=== PATIENT | female | born 1935 | race Caucasian/White ===

== ENCOUNTER 2019-08-03 09:21 | Inpatient (IN) | payer MEDICARE ==
--- NOTE | 2019-08-03 09:40 | ER Document Report ---
ED Medical Screen (RME) - General Chief Complaint: Fall Stated Complaint: LEFT HIP PAIN Time Seen by Provider: 08/03/19 09:35 Mode of Arrival: Medic Information source: Patient Notes: 83-year-old female presented to ED for fall last night. She states she was coming down the stairs stepped off of the left last step onto a slick wood floor and her foot went out from under her causing her to fall she does have pain in her left hip above the femoral head area. It is painful to move the leg. She states that she did not come in last night because she went to see how it was going to do and then this morning it continued to hurt so she came to the emergency room she does have a history of high blood pressure and arthritis. She states she does not smoke or use any illicit drugs but she has a glass of Chardonnay a couple times a week. She states there is no pain if she stays still but if she moves it it hurts and her daughter insisted she come to the hospital. Patient refuses pain medicine at this time. I have greeted and performed a rapid initial assessment of this patient. A comprehensive ED assessment and evaluation of the patient, analysis of test results and completion of medical decision making process will be conducted by an additional ED providers. Physical Exam - Vital signs Vitals: Temp Pulse Resp BP Pulse Ox 98.0 F 77 18 172/87 H 94 08/03/19 09:28 08/03/19 09:28 08/03/19 09:28 08/03/19 09:28 08/03/19 09:28 Course - Vital Signs Vital signs: Temp Pulse Resp BP Pulse Ox 98.0 F 77 18 172/87 H 94 08/03/19 09:28 08/03/19 09:28 08/03/19 09:28 08/03/19 09:28 08/03/19 09:28
--- NOTE | 2019-08-03 10:18 | RADIOLOGY REPORT (SQ) ---
EXAM DESCRIPTION: HIP LEFT AP/LATERAL COMPLETED DATE/TIME: 08/03/2019 10:07 am REASON FOR STUDY: bed 18 left hip s/p fall with tenderness COMPARISON: None. NUMBER OF VIEWS: Two views. TECHNIQUE: AP pelvis and additional frog-leg view of the left hip. LIMITATIONS: None. FINDINGS: MINERALIZATION: Normal. LEFT HIP: No fracture or dislocation. No worrisome bone lesions. RIGHT HIP: No fracture or dislocation. No worrisome bone lesions. PUBIS AND ISCHIUM: Comminuted fractures of the superior and inferior pubic rami on the left. PELVIS: No fracture. SACRUM: No fracture or dislocation. No worrisome bone lesions. LOWER LUMBAR SPINE: No fracture or dislocation. No worrisome bone lesions. No significant disc disea se. SOFT TISSUES: Calcification and diffuse ectasia of the aorta. Worrisome for aneurysmal dilatation di stally. OTHER: No other significant finding. IMPRESSION: Comminuted fractures of the superior inferior pubic rami on the left. Possible distal abdominal aortic aneurysm. COMMENT: Recommend aortic ultrasound. TECHNICAL DOCUMENTATION: JOB ID: [id number] [employer]- All Rights Reserved Reading location - IP/workstation name: [email or web address]
--- NOTE | 2019-08-03 11:14 | ER Document Report ---
ED General - General Chief Complaint: Fall Stated Complaint: LEFT HIP PAIN Time Seen by Provider: 08/03/19 09:35 Mode of Arrival: Medic - HPI Notes: Patient is an 83-year-old female with history of hypertension who presents complaining of left medial pelvic pain status post fall yesterday. Patient states that she was on the last step at her son's house and her sock slipped on the wood floor and she fell on her left hip area. Patient states that she has had pain since then primarily with movement. Patient states that she cannot weight-bear at this time because of the pain. She is otherwise able to eat and drink without difficulty. She is urinating normally and having normal bowel movements. She otherwise lives alone, but is visiting her son. Denies drug allergies. She is not on any blood thinning medications. Denies any headache, fever, head injury, neck pain, changes in vision/speech/mentation/hearing, URI, sore throat, chest pain, palpitations, syncope, cough, shortness of breath, wheeze, dyspnea, abdominal pain, nausea/vomiting/diarrhea, urinary retention, dysuria, hematuria, loss of control of bowel or bladder, numbness/tingling, saddle anesthesia, muscle paralysis, or rash. - Related Data Allergies/Adverse Reactions: No Known Allergies Allergy (Verified 08/03/19 09:42) Home Medications: Anatol and lisinopril Past Medical History - General Information source: Patient - Social History Smoking Status: Never Smoker Frequency of alcohol use: Occasional Family History: Reviewed & Not Pertinent Patient has suicidal ideation: No Patient has homicidal ideation: No Review of Systems - Review of Systems -: Yes All other systems reviewed and negative Physical Exam - Vital signs Vitals: Temp Pulse Resp BP Pulse Ox 98.0 F 77 18 172/87 H 94 08/03/19 09:28 08/03/19 09:28 08/03/19 09:28 08/03/19 09:28 08/03/19 09:28 - Notes Notes: PHYSICAL EXAMINATION: GENERAL: Well-appearing, well-nourished and in no acute distress. A&Ox4. answers questions appropriately. HEAD: Atraumatic, normocephalic. EYES: Pupils equal round and reactive to light, extraocular movements intact, sclera anicteric, conjunctiva are normal. ENT: EAC clear b/l. TM's intact b/l without erythema, fluid, or perforation. Nares patent and without discharge. oropharynx clear without exudates. No tonsilar hypertrophy or erythema. Moist mucous membranes. No sinus tenderness. NECK: Normal range of motion, supple without lymphadenopathy. No midline tenderness. LUNGS: Breath sounds clear to auscultation bilaterally and equal. No wheezes rales or rhonchi. HEART: Regular rate and rhythm without murmurs, rubs, gallops. ABDOMEN: Soft, nontender, nondistended abdomen. No guarding, no rebound. Normal bowel sounds present. No CVA tenderness bilaterally. Musculoskeletal: Left hip: FROM at the hip. + tenderness to the medial lower pelvic area. N/V intact distal. No lateral hip tenderness. Extremities: No cyanosis, clubbing, or edema b/l. Peripheral pulses 2+. Capillary refill less than 3 seconds. NEUROLOGICAL: Cranial nerves grossly intact. Normal speech, normal gait. Normal sensory, motor exams PSYCH: Normal mood, normal affect. SKIN: Warm, Dry, normal turgor, no rashes or lesions noted. Course - Re-evaluation Re-evalutation: 08/03/19 13:25 Patient is an 83-year-old female who presents with comminuted fractures of the superior inferior pubic rami on the left status post fall. Vitals are acceptable without significant tachycardia, tachypnea, hypoxia. PE is otherwise unremarkable for any neurovascular compromise, obvious tendon/leg rupture, open fracture, septic joint. Patient is an 83-year-old female who lives alone and cannot weight-bear. I did speak with our hospitalist, Dr. Hubbard, who has graciously accepted admission for this patient. Patient in agreement with plan. - Vital Signs Vital signs: Temp Pulse Resp BP Pulse Ox 98.0 F 77 18 172/87 H 94 08/03/19 09:28 08/03/19 09:28 08/03/19 09:28 08/03/19 09:28 08/03/19 09:28 - Laboratory Result Diagrams: 08/03/19 11:44 08/03/19 11:44 Laboratory results interpreted by me: 08/03/19 08/03/19 11:44 11:44 Hgb 15.6 H RDW 14.4 H Lymph % (Auto) 7.8 L Seg Neutrophils % 86.2 H Glucose 118 H Discharge - Discharge Clinical Impression: Fracture of pubic ramus Qualifiers: Encounter type: initial encounter Fracture type: closed Laterality: left Qualified Code(s): S32.592A - Other specified fracture of left pubis, initial encounter for closed fracture Condition: Stable Disposition: ADMITTED OBSERVATION Admitting Provider: Haydee (Hospitalist) Unit Admitted: Medical Floor
[2019-08-03] MEDS ORDERED: ACETAMINOPHEN 325 MG TABLET PO ONE (11:36)
[2019-08-03 11:53] LABS: ABSOLUTE BASOPHILS # (AUTO) 0.1 10^3/uL (0.0-0.2); ABSOLUTE LYMPHOCYTES (AUTO) 0.7 10^3/uL (0.5-4.7); ABSOLUTE MONOCYTES (AUTO) 0.4 10^3/uL (0.1-1.4); ABSOLUTE NEUT (AUTO) 7.4 10^3/uL (1.7-8.2); BASOPHILS % (AUTO) 0.6 % (0-2); EOSINOPHILS % (AUTO) 0.4 % (0-6); HEMATOCRIT 45.9 % (36.0-47.0); HEMOGLOBIN 15.6 g/dL (12.0-15.5); LYMPHOCYTES % (AUTO) 7.8 % (13-45); MEAN CORPUSCULAR HEMOGLOBIN 30.3 pg (27.0-33.4); MEAN CORPUSCULAR HGB CONC 33.9 g/dL (32.0-36.0); MEAN CORPUSCULAR VOLUME 89 fl (80-97); PLATELET COUNT 152 10^3/uL (150-450); RED BLOOD COUNT 5.14 10^6/uL (3.72-5.28); RED CELL DISTRIBUTION WIDTH 14.4 % (11.5-14.0); SEGMENTED NEUTROPHILS % (AUTO) 86.2 % (42-78); TOTAL CELLS COUNTED % (AUTO) 100 %; WHITE BLOOD COUNT 8.6 10^3/uL (4.0-10.5)
[2019-08-03 12:10] LABS: ALBUMIN 3.9 g/dL (3.5-5.0); ALKALINE PHOSPHATASE 60 U/L (38-126); ANION GAP 7 (5-19); ASPARTATE AMINO TRANSFERASE 27 U/L (14-36); BILIRUBIN,DIRECT 0.1 mg/dL (0.0-0.4); BILIRUBIN,TOTAL 1.1 mg/dL (0.2-1.3); BLOOD UREA NITROGEN 8 mg/dL (7-20); CALCIUM 9.3 mg/dL (8.4-10.2); CARBON DIOXIDE 28 mmol/L (22-30); CHLORIDE 102 mmol/L (98-107); GLUCOSE 118 mg/dL (75-110); POTASSIUM 4.2 mmol/L (3.6-5.0)
--- NOTE | 2019-08-03 13:01 | RADIOLOGY REPORT (SQ) ---
EXAM DESCRIPTION: U/S ABD AORTIC SCREENING COMPLETED DATE/TIME: 08/03/2019 12:52 pm REASON FOR STUDY: possible distal abd aortic aneurysm on XR COMPARISON: None. TECHNIQUE: Static and dynamic grayscale images acquired of the aorta and stored on PACs. Selected co espinoza Doppler and spectral images recorded. LIMITATIONS: None. FINDINGS: AORTIC CALIBER MAXIMAL PROXIMAL: 2.5 cm. MID: 1.5 cm. DISTAL: 1.2 cm. ILIAC DIAMETER RIGHT: 1.1 cm. LEFT: 1.1 cm. OTHER: No other significant finding. IMPRESSION: NO ABDOMINAL AORTIC ANEURYSM. COMMENT: Aortic aneurysm imaging followup: Negative, no followup necessary. *Based upon the Society for Vascular Surgery Guidelines: J Vasc Surg. 2009 Oct;50(4 Suppl):S2-49 *For aortas of maximum diameter of 2.6-2.9 cm meeting the criteria for AAA (?1.5 x proximal normal se gment) TECHNICAL DOCUMENTATION: JOB ID: [id number] [employer]- All Rights Reserved Reading location - IP/workstation name: [email or web address]
[2019-08-03 13:28] LABS: APPEARANCE,URINE CLEAR; BILIRUBIN,URINE NEGATIVE (NEGATIVE); COLOR,URINE YELLOW; GLUCOSE, URINE NEGATIVE (NEGATIVE); KETONES,URINE NEGATIVE (NEGATIVE); PROTEIN,URINE NEGATIVE (NEGATIVE); URINE SPECIFIC GRAVITY 1.005; UROBILINOGEN,URINE NEGATIVE mg/dL (<2.0)
[2019-08-03] MEDS ORDERED: IPRATROPIUM/ALBUTEROL 0.5-2.5 MG/3 ML AMPUL NEB PRN (15:04)
[2019-08-03] MEDS ORDERED: TEMAZEPAM 7.5 MG CAPSULE PO PRN (15:04)
[2019-08-03] MEDS ORDERED: MAG HYDROX/AL HYDROX/SIMETH SUSP 30 ML UDCUP PO PRN (15:04)
[2019-08-03] MEDS ORDERED: ONDANSETRON HCL INJ/PF 4 MG/2 ML SDV IV PRN (15:04)
[2019-08-03] MEDS ORDERED: ACETAMINOPHEN 325 MG TABLET PO PRN (15:04)
[2019-08-03] MEDS ORDERED: MORPHINE SULFATE 10 MG/ML INJ IV PRN (15:09)
[2019-08-03] MEDS ORDERED: METOPROLOL TARTRATE PF/INJ 5 MG/5 ML SDV IV PRN (15:10)
[2019-08-03] MEDS ORDERED: HYDRALAZINE HCL INJ/PF 20 MG/1 ML SDV IV PRN (15:10)
--- NOTE | 2019-08-03 17:40 | PDOC H&P ---
History of Present Illness Admission Date/PCP: 08/03/19 13:36 History of Present Illness: OJ BAH is a 83 year old female past medical history of hypertension [place] [facility] [place]. Fall happened one day prior to ED admission. She is stating that when going downstairs her socks slipped on the floor and she fell landing on her left hip, initially did not come to ED thinking it will get better. Stating it does not hurt much unless she ambulates, denies any numbness, tingling, or focal neurological symptoms. Did not stay in any head trauma, did not lose consciousness. Denies any fever, chills, nausea, vomiting, diarrhea, constipation or any urinary symptoms. Social History Smoking Status: Never Smoker Family History Family History: Reviewed & Not Pertinent Parental Family History Reviewed: Yes Children Family History Reviewed: Yes Sibling(s) Family History Reviewed.: Yes Medication/Allergy Home Medications: Aspirin [Aspirin 81 mg Chewable Tablet] 81 mg PO DAILY 08/03/19 Atenolol [Tenormin] 50 mg PO DAILY 08/03/19 Lisinopril [Prinivil] 20 mg PO DAILY 08/03/19 Allergies/Adverse Reactions: No Known Allergies Allergy (Verified 08/03/19 09:42) Review of Systems Review of Systems: as per hpi Physical Exam Vital Signs: Temp Pulse Resp BP Pulse Ox 98.8 F 75 16 170/83 H 96 08/03/19 16:27 08/03/19 16:27 08/03/19 16:27 08/03/19 16:27 08/03/19 16:27 Intake & Output 08/02/19 08/03/19 08/04/19 06:59 06:59 06:59 Output Total 175 Balance -175 Weight 71.668 kg General appearance: PRESENT: no acute distress, well-developed, well-nourished Head exam: PRESENT: atraumatic, normocephalic Respiratory exam: PRESENT: clear to auscultation lara. ABSENT: rales, rhonchi, wheezes Cardiovascular exam: PRESENT: RRR. ABSENT: diastolic murmur, rubs, systolic murmur GI/Abdominal exam: PRESENT: normal bowel sounds, soft. ABSENT: distended, gu arding, mass, organolmegaly, rebound, tenderness Rectal exam: PRESENT: deferred Extremities exam: PRESENT: full ROM. ABSENT: calf tenderness, clubbing, pedal edema Musculoskeletal exam: PRESENT: other - Normal range of motion passively. Pain on active range of motion. Neurovascularly intact. Results Laboratory Results: 08/03/19 11:44 08/03/19 11:44 08/03/19 08/03/19 08/03/19 11:44 11:44 13:19 WBC 8.6 RBC 5.14 Hgb 15.6 H Hct 45.9 MCV 89 MCH 30.3 MCHC 33.9 RDW 14.4 H Plt Count 152 Seg Neutrophils % 86.2 H Sodium 137.3 Potassium 4.2 Chloride 102 Carbon Dioxide 28 Anion Gap 7 BUN 8 Creatinine 0.61 Est GFR ( Amer) > 60 Glucose 118 H Calcium 9.3 Total Bilirubin 1.1 AST 27 Alkaline Phosphatase 60 Total Protein 7.0 Albumin 3.9 Urine Color YELLOW Urine Appearance CLEAR Urine pH 8.0 Ur Specific [place] 1.005 Urine Protein NEGATIVE Urine Glucose (UA) NEGATIVE Urine Ketones NEGATIVE Urine Blood NEGATIVE Urine RBC (Auto) 1 Impressions: Hip X-Ray 08/03/19 00:00 IMPRESSION: Comminuted fractures of the superior inferior pubic rami on the left. Possible distal abdominal aortic aneurysm. Abdomen Ultrasound 08/03/19 11:35 IMPRESSION: NO ABDOMINAL AORTIC ANEURYSM. Assessment and Plan - Diagnosis (1) Fracture of pubic ramus Qualifiers: Encounter type: initial encounter Fracture type: closed Laterality: left Qualified Code(s): S32.592A - Other specified fracture of left pubis, initial encounter for closed fracture Is this a current diagnosis for this admission?: Yes Plan: Due to mechanical fall. X-ray of the pelvis positive for comminuted fracture of the superior and inferior pubic rami on the left. Neurovascularly intact. Abdominal ultrasound negative for any acute changes. Admit to regular floor, pain management, physical therapy, will consult orthopedic surgery for further recommendation. No orbital services available today due to . Will consult once available. (2) Fall Qualifiers: Encounter type: initial encounter Qualified Code(s): W19.XXXA - Unspecified fall, initial encounter Is this a current diagnosis for this admission?: Yes Plan: Mechanical fall. Denies any head trauma. Did not lose consciousness. Alert and x4. Negative for any focal neurological symptoms. (3) Hypertension Is this a current diagnosis for this admission?: Yes Plan: Euvolemic. Restart home meds. Adjust meds as needed.
[2019-08-03] MEDS: PANTOPRAZOLE SODIUM 40 MG TABLET.DR PO SCH (18:25)
[2019-08-03] MEDS: HEPARIN SOD (PORCINE) 5,000 UNIT/ML 1 ML VIAL SUBCUT SCH (21:34)
[2019-08-03] MEDS: OXYCODONE-ACETAMINOPHEN 5-325 MG TABLET PO PRN (21:55)
[2019-08-04] MEDS: HEPARIN SOD (PORCINE) 5,000 UNIT/ML 1 ML VIAL SUBCUT SCH ×3 (05:36→21:16)
[2019-08-04] MEDS: PANTOPRAZOLE SODIUM 40 MG TABLET.DR PO SCH ×2 (05:36→18:00)
[2019-08-04 06:34] LABS: ABSOLUTE BASOPHILS # (AUTO) 0.1 10^3/uL (0.0-0.2); ABSOLUTE EOSINOPHILS # (AUTO) 0.1 10^3/uL (0.0-0.6); ABSOLUTE LYMPHOCYTES (AUTO) 1.3 10^3/uL (0.5-4.7); ABSOLUTE MONOCYTES (AUTO) 0.7 10^3/uL (0.1-1.4); ABSOLUTE NEUT (AUTO) 6.5 10^3/uL (1.7-8.2); BASOPHILS % (AUTO) 0.7 % (0-2); EOSINOPHILS % (AUTO) 1.3 % (0-6); HEMATOCRIT 44.4 % (36.0-47.0); HEMOGLOBIN 14.9 g/dL (12.0-15.5); LYMPHOCYTES % (AUTO) 14.5 % (13-45); MEAN CORPUSCULAR HEMOGLOBIN 30.4 pg (27.0-33.4); MEAN CORPUSCULAR HGB CONC 33.6 g/dL (32.0-36.0); MEAN CORPUSCULAR VOLUME 91 fl (80-97); MONOCYTES % (AUTO) 8.4 % (3-13); PLATELET COUNT 155 10^3/uL (150-450); RED BLOOD COUNT 4.91 10^6/uL (3.72-5.28); RED CELL DISTRIBUTION WIDTH 14.6 % (11.5-14.0); SEGMENTED NEUTROPHILS % (AUTO) 75.1 % (42-78); TOTAL CELLS COUNTED % (AUTO) 100 %; WHITE BLOOD COUNT 8.7 10^3/uL (4.0-10.5)
[2019-08-04] MEDS: LISINOPRIL 10 MG TABLET PO SCH (09:36)
[2019-08-04] MEDS: ATENOLOL 50 MG TABLET PO SCH (09:37)
[2019-08-04] MEDS: DOCUSATE SODIUM 100 MG CAPSULE PO SCH (09:39)
[2019-08-04] MEDS: ASPIRIN 81 MG TABLET, CHEWABLE PO SCH (09:39)
[2019-08-04] MEDS: OXYCODONE-ACETAMINOPHEN 5-325 MG TABLET PO PRN ×3 (09:39→19:42)
[2019-08-04] MEDS ORDERED: ATENOLOL 50 MG TABLET PO SCH (10:00)
[2019-08-04] MEDS ORDERED: LISINOPRIL 10 MG TABLET PO SCH (10:00)
[2019-08-04] MEDS ORDERED: (PENDING PHARMACY ID) (Lisinopril [Prinivil] 20 MG) PO SCH (10:00)
[2019-08-04] MEDS ORDERED: NORMAL SALINE 1000 ML 1,000 ML IV PRN (10:37)
--- NOTE | 2019-08-04 11:05 | PDOC PROGRESS REPORT ---
Subjective Progress Note for:: 08/04/19 Subjective:: OJ BAH is a 83 year old female past medical history of hypertension [facility]. Fall happened one day prior to ED admission. She is stating that when going downstairs her socks slipped on the floor and she fell landing on her left hip, initially did not come to ED thinking it will get better. Stating it does not hurt much unless she ambulates, denies any numbness, tingling, or focal neurological symptoms. Did not stay in any head trauma, did not lose consciousness. Denies any fever, chills, nausea, vomiting, diarrhea, constipation or any urinary symptoms. 08/04/2019. No acute events overnight. Patient complaining of left knee pain and left hip pain upon movement. Denies any fever, chills, nausea, vomiting, d iarrhea, constipation or any urinary symptoms. P.o. tolerant. Having normal bowel and bladder movements. Reason For Visit: PELVIC FX OF PUBIC RAMUS Physical Exam Vital Signs: Temp Pulse Resp BP Pulse Ox 98.3 F 88 23 H 164/73 H 96 08/04/19 08:06 08/04/19 08:06 08/04/19 08:06 08/04/19 08:06 08/04/19 08:06 Intake & Output 08/03/19 08/04/19 08/05/19 06:59 06:59 06:59 Intake Total 240 Output Total 175 Balance 65 Weight 69.6 kg General appearance: PRESENT: no acute distress, well-developed, well-nourished Respiratory exam: PRESENT: clear to auscultation lara. ABSENT: rales, rhonchi, wheezes Cardiovascular exam: PRESENT: RRR. ABSENT: diastolic murmur, rubs, systolic murmur GI/Abdominal exam: PRESENT: normal bowel sounds, soft. ABSENT: distended, guar ding, mass, organolmegaly, rebound, tenderness Musculoskeletal exam: PRESENT: tenderness - Left hip pain upon active range of motion. Neurovascularly intact. Neurological exam: PRESENT: alert, awake, oriented to person, oriented to place, oriented to time, oriented to situation, CN II-XII grossly intact. ABSENT: motor sensory deficit Results Laboratory Results: 08/04/19 06:16 08/03/19 11:44 08/03/19 08/03/19 08/03/19 11:44 11:44 13:19 WBC 8.6 RBC 5.14 Hgb 15.6 H Hct 45.9 MCV 89 MCH 30.3 MCHC 33.9 RDW 14.4 H Plt Count 152 Seg Neutrophils % 86.2 H Sodium 137.3 Potassium 4.2 Chloride 102 Carbon Dioxide 28 Anion Gap 7 BUN 8 Creatinine 0.61 Est GFR ( Amer) > 60 Glucose 118 H Calcium 9.3 Total Bilirubin 1.1 AST 27 Alkaline Phosphatase 60 Total Protein 7.0 Albumin 3.9 Urine Color YELLOW Urine Appearance CLEAR Urine pH 8.0 Ur Specific [place] 1.005 Urine Protein NEGATIVE Urine Glucose (UA) NEGATIVE Urine Ketones NEGATIVE Urine Blood NEGATIVE Urine RBC (Auto) 1 08/04/19 06:16 WBC 8.7 RBC 4.91 Hgb 14.9 Hct 44.4 MCV 91 MCH 30.4 MCHC 33.6 RDW 14.6 H Plt Count 155 Seg Neutrophils % 75.1 Sodium Potassium Chloride Carbon Dioxide Anion Gap BUN Creatinine Est GFR ( Amer) Glucose Calcium Total Bilirubin AST Alkaline Phosphatase Total Protein Albumin Urine Color Urine Appearance Urine pH Ur Specific [place] Urine Protein Urine Glucose (UA) Urine Ketones Urine Blood Urine RBC (Auto) Impressions: Hip X-Ray 08/03/19 00:00 IMPRESSION: Comminuted fractures of the superior inferior pubic rami on the left. Possible distal abdominal aortic aneurysm. Abdomen Ultrasound 08/03/19 11:35 IMPRESSION: NO ABDOMINAL AORTIC ANEURYSM. Assessment and Plan - Diagnosis (1) Fracture of pubic ramus Qualifiers: Encounter type: initial encounter Fracture type: closed Laterality: left Qualified Code(s): S32.592A - Other specified fracture of left pubis, initial encounter for closed fracture Is this a current diagnosis for this admission?: Yes Plan: Due to mechanical fall. X-ray of the pelvis positive for comminuted fracture of the superior and inferior pubic rami on the left. Neurovascularly intact. Abdominal ultrasound negative for any acute changes. Admit to regular floor, pain management, physical therapy, will consult orthopedic surgery for further recommendation. No orthopedic service services available today due to . Will consult once available. (2) Fall Qualifiers: Encounter type: initial encounter Qualified Code(s): W19.XXXA - Unspecified fall, initial encounter Is this a current diagnosis for this admission?: Yes Plan: Mechanical fall. Denies any head trauma. Did not lose consciousness. Alert and x4. Negative for any focal neurological symptoms. (3) Hypertension Is this a current diagnosis for this admission?: Yes Plan: Euvolemic. Restart home meds. Adjust meds as needed. (4) Pyuria Is this a current diagnosis for this admission?: Yes Plan: UA on admission positive for moderate leukocyte esterase. Patient asymptomatic. Urine culture no growth so far.
[2019-08-05] MEDS: PANTOPRAZOLE SODIUM 40 MG TABLET.DR PO SCH ×2 (06:23→18:24)
[2019-08-05] MEDS: HEPARIN SOD (PORCINE) 5,000 UNIT/ML 1 ML VIAL SUBCUT SCH ×3 (06:23→21:08)
[2019-08-05] MEDS: LISINOPRIL 10 MG TABLET PO SCH (10:37)
[2019-08-05] MEDS: ATENOLOL 50 MG TABLET PO SCH (10:38)
[2019-08-05] MEDS: ASPIRIN 81 MG TABLET, CHEWABLE PO SCH (10:38)
[2019-08-05] MEDS: DOCUSATE SODIUM 100 MG CAPSULE PO SCH (10:38)
--- NOTE | 2019-08-05 16:14 | PDOC PROGRESS REPORT ---
Subjective Progress Note for:: 08/05/19 Subjective:: OJ BAH is a 83 year old female past medical history of hypertension presented to [facility] after a mechanical fall. Fall happened one day prior to ED admission. She is stating that when going downstairs her socks slipped on the floor and she fell landing on her left hip, initially did not come to ED thinking it will get better. Stating it does not hurt much unless she ambulates, denies any numbness, tingling, or focal neurological symptoms. Did not stay in any head trauma, did not lose consciousness. Denies any fever, chills, nausea, vomiting, diarrhea, constipation or any urinary symptoms. 08/04/2019. No acute events overnight. Patient complaining of left knee pain and left hip pain upon movement. Denies any fever, chills, nausea, vomiting, d iarrhea, constipation or any urinary symptoms. P.o. tolerant. Having normal bowel and bladder movements. 08/05/2019. No acute events overnight. Complaining of bilateral knee pain. Pelvic pain is getting better however patient is not able to ambulate due to pain. Denies any fever, chills, nausea, vomiting, diarrhea, constipation or any urinary symptoms. Patient pending orthopedic consult. Reason For Visit: PELVIC FX OF PUBIC RAMUS Physical Exam Vital Signs: Temp Pulse Resp BP Pulse Ox 98.4 F 79 19 137/66 H 93 08/05/19 13:06 08/05/19 13:06 08/05/19 13:06 08/05/19 13:06 08/05/19 13:06 Intake & Output 08/04/19 08/05/19 08/06/19 06:59 06:59 06:59 Intake Total 240 1295 120 Output Total 175 575 200 Balance 65 720 -80 Weight 69.6 kg 72.3 kg General appearance: PRESENT: no acute distress, well-developed, well-nourished Head exam: PRESENT: atraumatic, normocephalic Respiratory exam: PRESENT: clear to auscultation lara. ABSENT: rales, rhonchi, wheezes Cardiovascular exam: PRESENT: RRR. ABSENT: diastolic murmur, rubs, systolic murmur GI/Abdominal exam: PRESENT: normal bowel sounds, soft. ABSENT: distended, guarding, mass, organolmegaly, rebound, tenderness Extremities exam: PRESENT: full ROM - Limited active range of motion due to pain.. ABSENT: calf tenderness, clubbing, pedal edema Neurological exam: PRESENT: alert, awake, oriented to person, oriented to place, oriented to time, oriented to situation, CN II-XII grossly intact. ABSENT: motor sensory deficit Results Laboratory Results: 08/04/19 06:16 08/03/19 11:44 08/03/19 13:19 Clean Catch Midstream Urine Culture - Final Mixed Urogenital Adam Impressions: Hip X-Ray 08/03/19 00:00 IMPRESSION: Comminuted fractures of the superior inferior pubic rami on the left. Possible distal abdominal aortic aneurysm. Abdomen Ultrasound 08/03/19 11:35 IMPRESSION: NO ABDOMINAL AORTIC ANEURYSM. Assessment and Plan - Diagnosis (1) Fracture of pubic ramus Qualifiers: Encounter type: initial encounter Fracture type: closed Laterality: left Qualified Code(s): S32.592A - Other specified fracture of left pubis, initial encounter for closed fracture Is this a current diagnosis for this admission?: Yes Plan: Due to mechanical fall. X-ray of the pelvis positive for comminuted fracture of the superior and inferior pubic rami on the left. Neurovascularly intact. Abdominal ultrasound negative for any acute changes. Admit to regular floor, pain management, physical therapy, will consult orthopedic surgery for further recommendation. No orthopedic service services available today due to . Will consult once available. (2) Fall Qualifiers: Encounter type: initial encounter Qualified Code(s): W19.XXXA - Unspecified fall, initial encounter Is this a current diagnosis for this admission?: Yes Plan: Mechanical fall. Denies any head trauma. Did not lose consciousness. Alert and x4. Negative for any focal neurological symptoms. (3) Hypertension Is this a current diagnosis for this admission?: Yes Plan: Euvolemic. Restart home meds. Adjust meds as needed. (4) Pyuria Is this a current diagnosis for this admission?: Yes Plan: UA on admission positive for moderate leukocyte esterase. Patient asymptomatic. Urine culture growing mixed urogenital adam.
[2019-08-05] MEDS: OXYCODONE-ACETAMINOPHEN 5-325 MG TABLET PO PRN (21:12)
--- NOTE | 2019-08-05 22:38 | PDOC CONSULTATION ---
Consultation Consult Date: 08/05/19 Provider Consulted: KIKO LEIVA JR History of Present Illness Admission Date/PCP: 08/04/19 10:32 History of Present Illness: OJ BAH is a 83 year old female who tripped in her home, slipping on a smooth floor with socks on. She landed on her left sided resulting in severe left hip pain that was difficult for her to ambulate and after 1 day her family was having difficulty helping her move and was concered about her pain control. That brought her to the ED for further evaluation where she was found to have a left superior and inferior pubic ramus fracture. Pain is severe with weight bearing, aching, 9/10, improved with rest and pain medications. She denies associated injuries, head injury, LOC. Past Medical History Psychiatric Medical History: Denies: Depression Social History Smoking Status: Never Smoker Frequency of Alcohol Use: None Hx Recreational Drug Use: No Drugs: None Hx Prescription Drug Abuse: No - Advance Directive Resuscitation Status: Full Code Family History Family History: Reviewed & Not Pertinent Parental Family History Reviewed: No Children Family History Reviewed: NA Sibling(s) Family History Reviewed.: NA Medication/Allergy Home Medications: Aspirin [Aspirin 81 mg Chewable Tablet] 81 mg PO DAILY 08/03/19 Atenolol [Tenormin] 50 mg PO DAILY 08/03/19 Lisinopril [Prinivil] 20 mg PO DAILY 08/03/19 Allergies/Adverse Reactions: No Known Allergies Allergy (Verified 08/03/19 09:42) Review of Systems Review of Systems: Constitutional: ABSENT: anorexia, chills, night sweats Cardiovascular: ABSENT: chest pain Respiratory: ABSENT: dyspnea Gastrointestinal: ABSENT: vomiting Genitourinary: ABSENT: dysuria Integumentary: ABSENT: rash Neurological: ABSENT: confusion, memory loss, numbness Psychiatric: ABSENT: hallucinations Hematologic/Lymphatic: ABSENT: easy bleeding Physical Exam Vital Signs: Temp Pulse Resp BP Pulse Ox 98.8 F 76 17 157/66 H 98 08/05/19 19:19 08/05/19 19:19 08/05/19 19:19 08/05/19 19:19 08/05/19 19:19 Intake & Output 08/04/19 08/05/19 08/06/19 06:59 06:59 06:59 Intake Total 240 1295 520 Output Total 175 575 275 Balance 65 720 245 Weight 69.6 kg 72.3 kg Physical Exam: General appearance: PRESENT: no acute distress, cooperative, well-nourished Head exam: PRESENT: atraumatic, normocephalic Eye exam: PRESENT: EOMI Ear exam: PRESENT: normal external ear exam Mouth exam: PRESENT: neck supple Neck exam: ABSENT: tracheal deviation Respiratory exam: PRESENT: symmetrical, unlabored. ABSENT: accessory muscle use, wheezes Pulses: PRESENT: normal radial pulses, normal dorsalis pedis pul Vascular exam: PRESENT: normal capillary refill GI/Abdominal exam: ABSENT: distended, firm Extremities exam: PRESENT: full ROM of bilateral shoulders, elbows wrists, knees, hips and ankles without pain Musculoskeletal exam: PRESENT: full ROM, normal inspection of all 4 extremities aside from that noted below. Neurological exam: PRESENT: alert, awake, oriented to person, oriented to place, oriented to time Psychiatric exam: PRESENT: appropriate affect. ABSENT: agitated Focused psych exam: ABSENT: catatonic Skin exam: PRESENT: intact. ABSENT: dry All as above aside from that noted in the HPI and the following: LLE -Pulses 2+ distally -Compartments soft -Sensation grossly intact to L3-4-5 S1 -Motor grossly intact to EHL TA gastroc and quad - Able to perform quad extension and elevate heel off of bed. - Pain to axial compression and log roll. Results Laboratory Results: 08/04/19 06:16 08/03/19 11:44 08/03/19 13:19 Clean Catch Midstream Urine Culture - Final Mixed Urogenital [place] Impressions: Hip X-Ray 08/03/19 00:00 IMPRESSION: Comminuted fractures of the superior inferior pubic rami on the left. Possible distal abdominal aortic aneurysm. Abdomen Ultrasound 08/03/19 11:35 IMPRESSION: NO ABDOMINAL AORTIC ANEURYSM. Assessment & Plan - Diagnosis (1) Fracture of pubic ramus Qualifiers: Encounter type: initial encounter Fracture type: closed Laterality: left Qualified Code(s): S32.592A - Other specified fracture of left pubis, initial encounter for closed fracture Is this a current diagnosis for this admission?: Yes Plan: - WBAT - PT/OT - Care management for placement planning.
[2019-08-06] MEDS: HEPARIN SOD (PORCINE) 5,000 UNIT/ML 1 ML VIAL SUBCUT SCH ×3 (06:16→21:28)
[2019-08-06] MEDS: PANTOPRAZOLE SODIUM 40 MG TABLET.DR PO SCH ×2 (06:16→18:04)
[2019-08-06] MEDS: ASPIRIN 81 MG TABLET, CHEWABLE PO SCH (09:38)
[2019-08-06] MEDS: LISINOPRIL 10 MG TABLET PO SCH (09:38)
[2019-08-06] MEDS: DOCUSATE SODIUM 100 MG CAPSULE PO SCH (09:38)
[2019-08-06] MEDS: ATENOLOL 50 MG TABLET PO SCH (09:39)
[2019-08-06] MEDS: OXYCODONE-ACETAMINOPHEN 5-325 MG TABLET PO PRN ×2 (09:53→21:26)
--- NOTE | 2019-08-06 14:42 | PDOC PROGRESS REPORT ---
Subjective Progress Note for:: 08/06/19 Subjective:: Patient seen this afternoon. She is doing well with no new complaints. She has been able to walk with therapy minimally. Difficulty weightbearing. But has done it with therapy today Reason For Visit: PELVIC FX OF PUBIC RAMUS Physical Exam Vital Signs: Temp Pulse Resp BP Pulse Ox 97.9 F 67 15 121/58 L 93 08/06/19 12:35 08/06/19 12:35 08/06/19 12:35 08/06/19 12:35 08/06/19 12:35 Intake & Output 08/05/19 08/06/19 08/07/19 06:59 06:59 06:59 Intake Total 1295 820 120 Output Total 575 575 150 Balance 720 245 -30 Weight 72.3 kg 71.9 kg Physical Exam: General appearance: PRESENT: no acute distress, cooperative, well-nourished Head exam: PRESENT: atraumatic, normocephalic Eye exam: PRESENT: EOMI Ear exam: PRESENT: normal external ear exam Mouth exam: PRESENT: neck supple Neck exam: ABSENT: tracheal deviation Respiratory exam: PRESENT: symmetrical, unlabored. ABSENT: accessory muscle use, wheezes Pulses: PRESENT: normal radial pulses, normal dorsalis pedis pul Vascular exam: PRESENT: normal capillary refill GI/Abdominal exam: ABSENT: distended, firm Extremities exam: PRESENT: full ROM of bilateral shoulders, elbows wrists, knees, hips and ankles without pain Musculoskeletal exam: PRESENT: full ROM, normal inspection of all 4 extremities aside from that noted below. Neurological exam: PRESENT: alert, awake, oriented to person, oriented to place, oriented to time Psychiatric exam: PRESENT: appropriate affect. ABSENT: agitated Focused psych exam: ABSENT: catatonic Skin exam: PRESENT: intact. ABSENT: dry All as above aside from that noted in the HPI and the following: LLE -Pulses 2+ distally -Compartments soft -Sensation grossly intact to L3-4-5 S1 -Motor grossly intact to EHL TA gastroc and quad - Able to perform quad extension and elevate heel off of bed. - Pain to axial compression and log roll. Results Laboratory Results: 08/04/19 06:16 08/03/19 11:44 08/03/19 13:19 Clean Catch Midstream Urine Culture - Final Mixed Urogenital [place] Impressions: Hip X-Ray 08/03/19 00:00 IMPRESSION: Comminuted fractures of the superior inferior pubic rami on the left. Possible distal abdominal aortic aneurysm. Abdomen Ultrasound 08/03/19 11:35 IMPRESSION: NO ABDOMINAL AORTIC ANEURYSM. Assessment & Plan - Diagnosis (1) Fracture of pubic ramus Qualifiers: Encounter type: initial encounter Fracture type: closed Laterality: left Qualified Code(s): S32.592A - Other specified fracture of left pubis, initial encounter for closed fracture Is this a current diagnosis for this admission?: Yes Plan: Continue current plan. Weightbearing as tolerated with physical therapy. Disposition planning. -I have ordered a post mobilization 3 view pelvis to occur tomorrow after she has walked with therapy. -She is to follow with me in my clinic in about 10 to 14 days for repeat x-rays. She is to call tomorrow for an appointment - Time Time Spent with patient: Less than 15 minutes
--- NOTE | 2019-08-06 15:47 | PDOC PROGRESS REPORT ---
Subjective Progress Note for:: 08/06/19 Subjective:: OJ BAH is a 83 year old female past medical history of hypertension [place] mechanical [place]. Fall happened one day prior to ED admission. She is stating that when going downstairs her socks slipped on the floor and she fell landing on her left hip, initially did not come to ED thinking it will get better. Stating it does not hurt much unless she ambulates, denies any numbness, tingling, or focal neurological symptoms. Did not stay in any head trauma, did not lose consciousness. Denies any fever, chills, nausea, vomiting, diarrhea, constipation or any urinary symptoms. 08/04/2019. No acute events overnight. Patient complaining of left knee pain and left hip pain upon movement. Denies any fever, chills, nausea, vomiting, d iarrhea, constipation or any urinary symptoms. P.o. tolerant. Having normal bowel and bladder movements. 08/05/2019. No acute events overnight. Complaining of bilateral knee pain. Pelvic pain is getting better however patient is not able to ambulate due to pain. Denies any fever, chills, nausea, vomiting, diarrhea, constipation or any urinary symptoms. Patient pending orthopedic consult. 08/06/2019. No acute events overnight. Complaining of bilateral knee pain, was able to do some physical therapy. Pending transfer to inpatient rehab. Reason For Visit: PELVIC FX OF PUBIC RAMUS Physical Exam Vital Signs: Temp Pulse Resp BP Pulse Ox 97.9 F 67 15 121/58 L 93 08/06/19 12:35 08/06/19 12:35 08/06/19 12:35 08/06/19 12:35 08/06/19 12:35 Intake & Output 08/05/19 08/06/19 08/07/19 06:59 06:59 06:59 Intake Total 1295 820 120 Output Total 575 575 150 Balance 720 245 -30 Weight 72.3 kg 71.9 kg Results Laboratory Results: 08/04/19 06:16 08/03/19 11:44 08/03/19 13:19 Clean Catch Midstream Urine Culture - Final Mixed Urogenital [place] Impressions: Hip X-Ray 08/03/19 00:00 IMPRESSION: Comminuted fractures of the superior inferior pubic rami on the left. Possible distal abdominal aortic aneurysm. Abdomen Ultrasound 08/03/19 11:35 IMPRESSION: NO ABDOMINAL AORTIC ANEURYSM. Assessment and Plan - Diagnosis (1) Fracture of pubic ramus Qualifiers: Encounter type: initial encounter Fracture type: closed Laterality: left Qualified Code(s): S32.592A - Other specified fracture of left pubis, initial encounter for closed fracture Is this a current diagnosis for this admission?: Yes Plan: Due to mechanical fall. X-ray of the pelvis positive for comminuted fracture of the superior and inferior pubic rami on the left. Neurovascularly intact. Abdominal ultrasound negative for any acute changes. Orthopedic surgery has been consulted. Recommendations noted. No surgical intervention recommended. Plan is to continue weightbearing physical therapy as tolerated. Disposition plan as inpatient rehab. Patient to follow-up with Dr. Peterson in 10 to 14 days. Continue PT/OT continue supportive measures. (2) Fall Qualifiers: Encounter type: initial encounter Qualified Code(s): W19.XXXA - Unspecified fall, initial encounter Is this a current diagnosis for this admission?: Yes Plan: Mechanical fall. Denies any head trauma. Did not lose consciousness. Alert and x4. Negative for any focal neurological symptoms. Implement fall precautions. Continue physical therapy. (3) Hypertension Is this a current diagnosis for this admission?: Yes Plan: Euvolemic. Restart home meds. Adjust meds as needed. (4) Pyuria Is this a current diagnosis for this admission?: Yes Plan: UA on admission positive for moderate leukocyte esterase. Patient asymptomatic. Urine culture growing mixed urogenital adam.
[2019-08-07] MEDS: HEPARIN SOD (PORCINE) 5,000 UNIT/ML 1 ML VIAL SUBCUT SCH ×3 (05:13→23:09)
[2019-08-07] MEDS: PANTOPRAZOLE SODIUM 40 MG TABLET.DR PO SCH ×2 (05:13→18:47)
[2019-08-07] MEDS: ATENOLOL 50 MG TABLET PO SCH (09:51)
[2019-08-07] MEDS: DOCUSATE SODIUM 100 MG CAPSULE PO SCH (09:51)
[2019-08-07] MEDS: LISINOPRIL 10 MG TABLET PO SCH (09:52)
[2019-08-07] MEDS: ASPIRIN 81 MG TABLET, CHEWABLE PO SCH (09:52)
[2019-08-07] MEDS: OXYCODONE-ACETAMINOPHEN 5-325 MG TABLET PO PRN (09:55)
--- NOTE | 2019-08-07 14:15 | PDOC PROGRESS REPORT ---
Subjective Progress Note for:: 08/07/19 Subjective:: OJ BAH is a 83 year old female past medical history of hypertension presented [place] [facility] after a mechanical fall. Fall happened one day prior to ED admission. She is stating that when going downstairs her socks slipped on the floor and she fell landing on her left hip, initially did not come to ED thinking it will get better. Stating it does not hurt much unless she ambulates, denies any numbness, tingling, or focal neurological symptoms. Did not stay in any head trauma, did not lose consciousness. Denies any fever, chills, nausea, vomiting, diarrhea, constipation or any urinary symptoms. 08/04/2019. No acute events overnight. Patient complaining of left knee pain and left hip pain upon movement. Denies any fever, chills, nausea, vomiting, d iarrhea, constipation or any urinary symptoms. P.o. tolerant. Having normal bowel and bladder movements. 08/05/2019. No acute events overnight. Complaining of bilateral knee pain. Pelvic pain is getting better however patient is not able to ambulate due to pain. Denies any fever, chills, nausea, vomiting, diarrhea, constipation or any urinary symptoms. Patient pending orthopedic consult. 08/06/2019. No acute events overnight. Complaining of bilateral knee pain, was able to do some physical therapy. Pending transfer to inpatient rehab. 08/07/2019. No acute events overnight. Pending placement to rehab. Reason For Visit: PELVIC FX OF PUBIC RAMUS Physical Exam Vital Signs: Temp Pulse Resp BP Pulse Ox 98.8 F 72 17 138/75 H 97 08/07/19 11:54 08/07/19 11:54 08/07/19 11:54 08/07/19 11:54 08/07/19 11:54 Intake & Output 08/06/19 08/07/19 08/08/19 06:59 06:59 06:59 Intake Total 820 240 240 Output Total 575 500 200 Balance 245 -260 40 Weight 71.9 kg 73.1 kg General appearance: PRESENT: no acute distress, well-developed, well-nourished Head exam: PRESENT: atraumatic, normocephalic Respiratory exam: PRESENT: clear to auscultation lara. ABSENT: rales, rhonchi, wheezes Cardiovascular exam: PRESENT: RRR. ABSENT: diastolic murmur, rubs, systolic m urmur GI/Abdominal exam: PRESENT: normal bowel sounds, soft. ABSENT: distended, guarding, mass, organolmegaly, rebound, tenderness Musculoskeletal exam: PRESENT: full ROM Neurological exam: PRESENT: alert, awake, oriented to person, oriented to place, oriented to time, oriented to situation, CN II-XII grossly intact. ABSENT: motor sensory deficit Results Laboratory Results: 08/04/19 06:16 08/03/19 11:44 Impressions: Hip X-Ray 08/03/19 00:00 IMPRESSION: Comminuted fractures of the superior inferior pubic rami on the left. Possible distal abdominal aortic aneurysm. Abdomen Ultrasound 08/03/19 11:35 IMPRESSION: NO ABDOMINAL AORTIC ANEURYSM. Assessment and Plan - Diagnosis (1) Fracture of pubic ramus Qualifiers: Encounter type: initial encounter Fracture type: closed Laterality: left Qualified Code(s): S32.592A - Other specified fracture of left pubis, initial encounter for closed fracture Is this a current diagnosis for this admission?: Yes Plan: Due to mechanical fall. X-ray of the pelvis positive for comminuted fracture of the superior and inferior pubic rami on the left. Neurovascularly intact. Abdominal ultrasound negative for any acute changes. Orthopedic surgery has been consulted. Recommendations noted. No surgical intervention recommended. Plan is to continue weightbearing physical therapy as tolerated. Disposition plan as inpatient rehab. Patient to follow-up with Dr. Peterson in 10 to 14 days. Continue PT/OT continue supportive measures. (2) Fall Qualifiers: Encounter type: initial encounter Qualified Code(s): W19.XXXA - Unspecified fall, initial encounter Is this a current diagnosis for this admission?: Yes Plan: Mechanical fall. Denies any head trauma. Did not lose consciousness. Alert and x4. Negative for any focal neurological symptoms. Implement fall precautions. Continue physical therapy. (3) Hypertension Is this a current diagnosis for this admission?: Yes Plan: Euvolemic. Restart home meds. Adjust meds as needed. (4) Pyuria Is this a current diagnosis for this admission?: Yes Plan: UA on admission positive for moderate leukocyte esterase. Patient asymptomatic. Urine culture growing mixed urogenital adam.
--- NOTE | 2019-08-07 16:02 | RADIOLOGY REPORT (SQ) ---
EXAM DESCRIPTION: PELVIS W/OBLIQUES COMPLETED DATE/TIME: 08/07/2019 3:24 pm REASON FOR STUDY: Post mobilization S92.151K DISPL AVULS FX (CHIP FRACTURE) OF R TALUS, 7THK COMPARISON: 08/03/2019 NUMBER OF VIEWS: 3 views TECHNIQUE: AP pelvis and additional frog-leg view of both hips. LIMITATIONS: None. FINDINGS: MINERALIZATION: Decreased. HIPS: No acute fracture or dislocation. No worrisome bone lesions. SACRUM: No acute fracture or dislocation. No worrisome bone lesions. PUBIS AND ISCHIUM: Again seen are the minimally displaced left superior and inferior pubic rami fract ures. No new fractures. LOWER LUMBAR SPINE: No significant findings as visualized. SOFT TISSUES: Vascular calcifications. Vascular calcifications. Diamond catheter tubing overlies pelv is. OTHER: No other significant finding. IMPRESSION: Unchanged appearance of the comminuted, minimally displaced left superior and inferior p ubic rami fractures. TECHNICAL DOCUMENTATION: JOB ID: [id number] [employer]- All Rights Reserved Reading location - IP/workstation name: [email or web address]
[2019-08-08] MEDS: PANTOPRAZOLE SODIUM 40 MG TABLET.DR PO SCH (05:40)
[2019-08-08] MEDS: HEPARIN SOD (PORCINE) 5,000 UNIT/ML 1 ML VIAL SUBCUT SCH ×2 (05:40→14:01)
[2019-08-08] MEDS: DOCUSATE SODIUM 100 MG CAPSULE PO SCH (10:03)
[2019-08-08] MEDS: ASPIRIN 81 MG TABLET, CHEWABLE PO SCH (10:04)
[2019-08-08] MEDS: LISINOPRIL 10 MG TABLET PO SCH (10:04)
[2019-08-08] MEDS: ATENOLOL 50 MG TABLET PO SCH (10:05)
[2019-08-08] MEDS: OXYCODONE-ACETAMINOPHEN 5-325 MG TABLET PO PRN (14:01)
--- NOTE | 2019-08-08 15:48 | PDOC TRANSFER SUMMARY ---
Impression - Admit/DC Date/PCP Admission Date/Primary Care Provider: 08/04/19 10:32 Discharge Date: 08/08/19 - Discharge Diagnosis (1) Fracture of pubic ramus Is this a current diagnosis for this admission?: Yes (2) Fall Is this a current diagnosis for this admission?: Yes (3) Hypertension Is this a current diagnosis for this admission?: Yes - Additional Information Resuscitation Status: Full Code Referrals: KIKO LEIVA JR, [ACTIVE PROVISIONAL STAFF] - Home Medications: Aspirin [Aspirin 81 mg Chewable Tablet] 81 mg PO DAILY 08/03/19 Atenolol [Tenormin] 50 mg PO DAILY 08/03/19 Lisinopril [Prinivil] 20 mg PO DAILY 08/03/19 History of Present Illiness History of Present Illness: Admitting H&P: OJ BAH is a 83 year old female past medical history of hypertension presented to [facility] after a mechanical fall. Fall happened one day prior to ED admission. She is stating that when going downstairs her socks slipped on the floor and she fell landing on her left hip, initially did not come to ED thinking it will get better. Stating it does not hurt much unless she ambulates, denies any numbness, tingling, or focal neurological symptoms. Did not stay in any head trauma, did not lose consciousness. Denies any fever, chills, nausea, vomiting, diarrhea, constipation or any urinary symptoms. Hospital Course Hospital Course: Patient was admitted after sustaining a comminuted fracture of the superior and inferior pubic rami on the left hip. She was evaluated by orthopedics who recommended none surgical treatment but continue physical therapy. She was also evaluated by PT. She has been medically stable and without acute medical issues. She will be discharged to [place] for inpatient rehab. She will closely follow-up with orthopedics. Physical Exam Vital Signs: Temp Pulse Resp BP Pulse Ox 98.3 F 74 16 151/73 H 94 08/08/19 11:03 08/08/19 11:03 08/08/19 11:03 08/08/19 11:03 08/08/19 11:03 Intake & Output 08/07/19 08/08/19 08/09/19 06:59 06:59 06:59 Intake Total 240 745 240 Output Total 500 950 225 Balance -260 -205 15 Weight 161 lb 2.526 oz 158 lb 1.143 oz General appearance: PRESENT: no acute distress, well-developed, well-nourished Head exam: PRESENT: atraumatic, normocephalic Eye exam: PRESENT: conjunctiva pink, EOMI, PERRLA. ABSENT: scleral icterus Ear exam: PRESENT: normal external ear exam Mouth exam: PRESENT: moist, tongue midline Neck exam: ABSENT: carotid bruit, JVD, lymphadenopathy, thyromegaly Respiratory exam: PRESENT: clear to auscultation lara. ABSENT: rales, rhonchi, wheezes Cardiovascular exam: PRESENT: RRR. ABSENT: diastolic murmur, rubs, systolic murmur Pulses: PRESENT: normal dorsalis pedis pul GI/Abdominal exam: PRESENT: normal bowel sounds, soft. ABSENT: distended, guarding, mass, organolmegaly, rebound, tenderness Rectal exam: PRESENT: deferred Extremities exam: ABSENT: pedal edema Neurological exam: PRESENT: alert, awake, oriented to person, oriented to place, oriented to time, oriented to situation, CN II-XII grossly intact. ABSENT: motor sensory deficit Results Laboratory Results: WBC 8.7 10^3/uL (4.0-10.5) 08/04/19 06:16 RBC 4.91 10^6/uL (3.72-5.28) 08/04/19 06:16 Hgb 14.9 g/dL (12.0-15.5) 08/04/19 06:16 Hct 44.4 % (36.0-47.0) 08/04/19 06:16 MCV 91 fl (80-97) 08/04/19 06:16 MCH 30.4 pg (27.0-33.4) 08/04/19 06:16 MCHC 33.6 g/dL (32.0-36.0) 08/04/19 06:16 RDW 14.6 % (11.5-14.0) H 08/04/19 06:16 Plt Count 155 10^3/uL (150-450) 08/04/19 06:16 Lymph % (Auto) 14.5 % (13-45) 08/04/19 06:16 [place] % (Auto) 8.4 % (3-13) 08/04/19 06:16 Eos % (Auto) 1.3 % (0-6) 08/04/19 06:16 Baso % (Auto) 0.7 % (0-2) 08/04/19 06:16 Absolute Neuts (auto) 6.5 10^3/uL (1.7-8.2) 08/04/19 06:16 Absolute Lymphs (auto) 1.3 10^3/uL (0.5-4.7) 08/04/19 06:16 Absolute Monos (auto) 0.7 10^3/uL (0.1-1.4) 08/04/19 06:16 Absolute Eos (auto) 0.1 10^3/uL (0.0-0.6) 08/04/19 06:16 Absolute Basos (auto) 0.1 10^3/uL (0.0-0.2) 08/04/19 06:16 Seg Neutrophils % 75.1 % (42-78) 08/04/19 06:16 Sodium 137.3 mmol/L (137-145) 08/03/19 11:44 Potassium 4.2 mmol/L (3.6-5.0) 08/03/19 11:44 Chloride 102 mmol/L (98-107) 08/03/19 11:44 Carbon Dioxide 28 mmol/L (22-30) 08/03/19 11:44 Anion Gap 7 (5-19) 08/03/19 11:44 BUN 8 mg/dL (7-20) 08/03/19 11:44 Creatinine 0.61 mg/dL (0.52-1.25) 08/03/19 11:44 Est GFR ( Amer) > 60 (>60) 08/03/19 11:44 Est GFR (MDRD) Non-Af > 60 (>60) 08/03/19 11:44 Glucose 118 mg/dL (75-110) H 08/03/19 11:44 Calcium 9.3 mg/dL (8.4-10.2) 08/03/19 11:44 Total Bilirubin 1.1 mg/dL (0.2-1.3) 08/03/19 11:44 Direct Bilirubin 0.1 mg/dL (0.0-0.4) 08/03/19 11:44 Neonat Total Bilirubin Not Reportable 08/03/19 11:44 Neonat Direct Bilirubin Not Reportable 08/03/19 11:44 Neonat Indirect Bili Not Reportable 08/03/19 11:44 AST 27 U/L (14-36) 08/03/19 11:44 ALT 16 U/L (<35) 08/03/19 11:44 Alkaline Phosphatase 60 U/L (38-126) 08/03/19 11:44 Total Protein 7.0 g/dL (6.3-8.2) 08/03/19 11:44 Albumin 3.9 g/dL (3.5-5.0) 08/03/19 11:44 Urine Color YELLOW 08/03/19 13:19 Urine Appearance CLEAR 08/03/19 13:19 Urine pH 8.0 (5.0-9.0) 08/03/19 13:19 Ur Specific [place] 1.005 08/03/19 13:19 Urine Protein NEGATIVE mg/dL (NEGATIVE) 08/03/19 13:19 Urine Glucose (UA) NEGATIVE mg/dL (NEGATIVE) 08/03/19 13:19 Urine Ketones NEGATIVE mg/dL (NEGATIVE) 08/03/19 13:19 Urine Blood NEGATIVE (NEGATIVE) 08/03/19 13:19 Urine Nitrite (Reflex) NEGATIVE (NEGATIVE) 08/03/19 13:19 Urine Bilirubin NEGATIVE (NEGATIVE) 08/03/19 13:19 Urine Urobilinogen NEGATIVE mg/dL (<2.0) 08/03/19 13:19 Leukocyte Esterase Rfl MODERATE (NEGATIVE) H 08/03/19 13:19 Urine RBC (Auto) 1 /HPF 08/03/19 13:19 Urine Bacteria (Auto) TRACE /HPF 08/03/19 13:19 Urine WBC (Reflex) 3 /HPF 08/03/19 13:19 Squamous Epi Cells Auto 1 /HPF 08/03/19 13:19 Urine Ascorbic Acid NEGATIVE (NEGATIVE) 08/03/19 13:19 Impressions: Hip X-Ray 08/03/19 00:00 IMPRESSION: Comminuted fractures of the superior inferior pubic rami on the left. Possible distal abdominal aortic aneurysm. Abdomen Ultrasound 08/03/19 11:35 IMPRESSION: NO ABDOMINAL AORTIC ANEURYSM. Pelvis X-Ray 08/07/19 00:00 IMPRESSION: Unchanged appearance of the comminuted, minimally displaced left superior and inferior pubic rami fractures. Stroke Is this a Stroke Patient?: No Acute Heart Failure - Is this a Heart Failure Patient?: No
[2019-08-08 16:30] VITALS: BP 120/63
== END 2019-08-08 17:33 | DRG 536 ==
LOC: ER 09:21 → EH 13:36 → 4S 16:52 → OBSVTOIN 08-04 10:32
PROVIDERS: ADMIT Internal Medicine; ATTEND Internal Medicine
DX: S32.502A Unspecified fracture of left pubis, initial encounter for closed fracture (principal); I10 Essential (primary) hypertension; W10.8XXA Fall (on) (from) other stairs and steps, initial encounter; R82.81 Pyuria; M25.562 Pain in left knee; M25.561 Pain in right knee; Y92.009 Unspecified place in unspecified non-institutional (private) residence as the place of occurrence of the external cause; Z79.82 Long term (current) use of aspirin; Z79.899 Other long term (current) drug therapy
CPT/HCPCS: 36415; 72190; 76706; 80053; 81001; 85025; 87086; 99285; G0378; J0360; J1644; J3490; J7030